=== PATIENT | male | born 1940 | race Caucasian/White ===

== ENCOUNTER → 2016-06-01 | Outpatient (CLI) | payer MEDICARE, OTHER ==
[~2016-06-01] VITALS: Ht 162.6 cm; Wt 44.5 kg
== END ==
LOC: OPSV 09:00
DX: D64.9 Anemia, unspecified (principal); C79.89 Secondary malignant neoplasm of other specified sites
CPT/HCPCS: 36430; J1642; J7050; P9016; Q0163